=== PATIENT | female | born 1940 | race Caucasian/White ===

== ENCOUNTER 2020-05-08 20:08 | Emergency (ER) | payer MEDICARE, OTHER, SELFPAY ==
[2020-05-08 20:17] VITALS: BP 160/64; PULSE 57; RESP 16; TEMP 36.3; O2SAT 98
--- NOTE | 2020-05-08 20:19 | XR_ITS ---
WS: [id number] XR chest 1V portable [id number] REASON FOR EXAM: syncope FINDINGS: The heart and mediastinum are within normal limits for age. Mild elevation and flattening of the left hemidiaphragm with minimal blunting of the costophrenic ang le, likely chronic. Calcified granulomatous disease in both hilar regions. No active pulmonary parenchymal pleural diseas e noted. Bony thorax intact. XR/XR chest 1V portable [id number] IMPRESSION: No acute chest abnormality
--- NOTE | 2020-05-08 20:19 | ECG_ITS ---
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 Measurements Intervals [place] Rate: 66 P: 27 AK: 159 QRS: 26 QRSD: 90 T: 65 QT: 417 QTc: 440 Interpretive Statements SINUS RHYTHM LOW QRS VOLTAGE IN PRECORDIAL LEADS [QRS DEFLECTION < 1.0 mV IN CHEST LEADS] SEPTAL MYOCARDIAL INFARCTION [40+ ms Q WAVE IN V1/V2], OF INDETERMINATE AGE No previous ECG available for comparison Electronically Signed On 05-09-2020 20:52:31 CDT by Eugenio Salas M.D. [id number]
[2020-05-08 20:27] VITALS: BP 160/64; PULSE 74; RESP 18; O2SAT 98
--- NOTE | 2020-05-08 20:29 | W.ED.SYNCOPE ---
HPI - Syncope General: Chief Complaint: Syncope Stated Complaint: SYNCOPED Time Seen by Provider: 05/08/20 20:11 Source: patient and EMS Mode of arrival: EMS Limitations: altered mental status History of Present Illness: HPI narrative: 79-year-old female who has a history of severe Alzheimer's. Patient is at her baseline currently which is orientated to self. Per EMS she was walking and felt lightheaded sat down the couch and had a syncopal episode for roughly 1 minute. Patient since has been awake. They state when he first arrived she was slightly hypotensive but is now normotensive. She denies any chest pain denies any headache. She has had no vomiting or diarrhea. Family states that she does get dehydrated and does not take much oral intake. Associated symptoms: Deny abdominal pain, fever(s), headache(s) or nausea Review of Systems Const: Denies: fever(s), chills, body aches or change in appetite Eyes: Denies: blurry vision or eye discomfort ENMT: Denies: throat pain or dental pain Card: Reports: syncope Resp: Denies: dyspnea GI: Denies: abdominal pain, nausea, vomiting or diarrhea : Denies: dysuria Musc: Denies: neck pain or back pain Skin/Breast: Denies: rash Neuro: Denies: headache(s) Psych: Denies: depression Reza/Lymph: Denies: easy bruising All/Imm: Denies: urticaria Physical Exam Const: COMMON NORMALS: no acute distress and healthy appearing; negative for patient oriented x3 ORIENTATION/CONSCIOUSNESS: Yes oriented to person; not oriented to place and not oriented to time HENMT: COMMON NORMALS: normocephalic and atraumatic HEAD & SCALP: normocephalic and atraumatic Eye: COMMON NORMALS: Equal, round and reactive pupils present and EOMs intact bilaterally PUPIL: Yes Equal, round and reactive pupils present Neck/C-Spine: COMMON NORMALS: full ROM and supple Chest: COMMONS NORMALS: normal inspection of the chest and normal palpation of entire chest wall Resp: COMMON NORMALS: normal respiratory effort, No retractions, No use of accessory muscles and clear to auscultation bilaterally AUSCULTATION: clear to auscultation bilaterally Cardio: COMMON NORMALS: regular rate, regular rhythm and No murmurs present (Cardio) RATE: regular rate RHYTHM: regular rhythm GI: COMMON NORMALS: Normal to inspection, nondistended, normoactive bowel sounds present, Soft to palpation, non-tender and no masses PALPATION: Yes Soft to palpation Extremity: COMMON NORMALS: normal to inspection and full ROM Neuro: COMMON NORMALS: moves all extremities and no focal motor deficits; negative for patient oriented x3 SENSORIUM/ORIENTATION: Yes oriented to person, No oriented to place and No oriented to time Psych: COMMON NORMALS: mental status grossly normal, Normal thought process present and cooperative THOUGHT PROCESS: Normal thought process present Skin: COMMON NORMALS: no rashes or lesions noted and no wounds GENERAL SKIN EXAM: no rashes or lesions noted Course Vital Signs: Vital signs: Vital Signs Temperature 97.4 F L 05/08/20 20:17 Pulse Rate 55 L 05/08/20 21:22 Respiratory Rate 16 05/08/20 21:22 Blood Pressure 182/61 05/08/20 21:22 Pulse Oximetry 99 05/08/20 21:22 MDM - Syncope MDM Narrative: Medical decision making narrative: Patient presents here with a syncopal event. She is well-appearing here was able to ambulate without any difficulty. She has no signs of a stroke. No signs of acute coronary syndrome or pulmonary bruising. Sounds like a likely vagal event. She is stable for discharge and return if worsening. She is to follow-up with PCP. Lab Data: Labs: Lab Results 05/08/20 05/08/20 05/08/20 Range/Units 20:47 20:48 20:48 WBC 10.1 H (4.0-10.0) 10^3/ uL RBC 4.84 (4.1-5.3) 10^6/u L Hgb 14.5 (11.5-15.3) g/dL Hct 44.9 (37.0-47.0) % MCV 92.8 (81-99) fL MCH 30.0 (28.0-34.0) pg MCHC 32.3 (30.0-36.0) g/dL RDW 13.0 (12.1-15.1) % Plt Count 148 (130-400) 10^3/c mm MPV 12.4 H (7.4-10.4) fL Neut % (Auto) 68.7 % Lymph % (Auto) 18.8 % [place] % (Auto) 9.6 % Eos % (Auto) 1.9 % Baso % (Auto) 0.7 % Neut # (Auto) 6.97 (1.8-7.7) 10^3/u L Lymph # (Auto) 1.9 (0.8-4.8) 10^3/u L [place] # (Auto) 1.0 H (0.2-0.9) 10^3/u L Eos # (Auto) 0.2 (0.0-0.8) 10^3/u L Baso # (Auto) 0.1 (0.0-0.1) 10^3/u L Nucleated RBC % (a uto) 0 % Nucleated RBCs # 0.0 /100WBC Sodium 142 (136-145) mmol/L Potassium 3.5 (3.5-5.1) mmol/L Chloride 101 (98-107) mmol/L Carbon Dioxide 27 (22-29) mmol/L Anion Gap 17.5 (5-19) BUN 18 (8-23) mg/dL Creatinine 1.0 H (0.5-0.9) mg/dL GFR Calculation Not Reportable Glucose 141 H (65-115) mg/dL POC Glucose 124 (70-110) mg/dL Calculated Osmolal ity 298 H (285-295) mOsm/k g Calcium 10.7 H (8.5-10.5) mg/dL Total Bilirubin 0.7 (0.15-1.2) mg/dL AST 27 (0-32) U/L ALT 24 (0-33) U/L Alkaline Phosphata se 99 (35-105) IU/L Total Protein 7.0 (6.6-8.7) g/dL Albumin 4.0 (3.5-5.2) g/dL Globulin 3.0 (1.3-4.6) g/dL Imaging Data^: CXR: Attestation: I personally reviewed and interpreted this imaging study as follows: My impression: no acute abnormality Discharge Plan Discharge Patient Disposition: Home Clinical Impression: Vasovagal syncope Condition: Stable Discharge Orders: Discharge Order (Routine); Ordered 05/08/20 Ordered By: Gus Terry Referrals: Tesha Jefferson FNP [Primary Care Provider] - 1-3 days Discharge Diet: Advance as tolerated Discharge Activity: Resume usual activity Patient Instructions: Syncope (ED) Coding Level of Care Code ED [employer] for [employer] Fwd Exam Comprehensive
--- NOTE | 2020-05-08 20:48 | PC.NURSE ---
blood glucose is 124.
[2020-05-08] MEDS: sodium chloride 0.9% 1,000 ML 999 ML IV (20:50)
[2020-05-08 20:52] LABS: Glucose Point of Care 124 mg/dL (70-110)
[2020-05-08 21:22] VITALS: BP 182/61; PULSE 55; RESP 16; O2SAT 99
[2020-05-08 21:27] LABS: Basophils # 0.1 10^3/uL (0.0-0.1); Basophils % 0.7 %; Eosinophils # 0.2 10^3/uL (0.0-0.8); Eosinophils % 1.9 %; Hematocrit 44.9 % (37.0-47.0); Hemoglobin 14.5 g/dL (11.5-15.3); Lymphocytes # 1.9 10^3/uL (0.8-4.8); Lymphocytes % 18.8 %; Mean Corpuscular HGB Conc 32.3 g/dL (30.0-36.0); Mean Corpuscular Volume 92.8 fL (81-99); Mean Platelet Volume 12.4 fL (7.4-10.4); Monocytes % 9.6 %; Neutrophils # 6.97 10^3/uL (1.8-7.7); Neutrophils % 68.7 %; Nucleated Red Blood Cells % 0 %; Platelet Count 148 10^3/cmm (130-400); Red Blood Count 4.84 10^6/uL (4.1-5.3); White Blood Count 10.1 10^3/uL (4.0-10.0)
[2020-05-08 21:38] LABS: Alanine Aminotransferase 24 U/L (0-33); Alkaline Phosphatase 99 IU/L (35-105); Anion Gap 17.5 (5-19); Aspartate Amino Transferase 27 U/L (0-32); Blood Urea Nitrogen 18 mg/dL (8-23); Calcium 10.7 mg/dL (8.5-10.5); Carbon Dioxide 27 mmol/L (22-29); Chloride 101 mmol/L (98-107); Glucose 141 mg/dL (65-115); Osmolality Calculated 298 mOsm/kg (285-295); Potassium 3.5 mmol/L (3.5-5.1); Sodium 142 mmol/L (136-145); Total Bilirubin 0.7 mg/dL (0.15-1.2)
[2020-05-08 22:35] VITALS: BP 159/81; PULSE 90; RESP 18; O2SAT 98
== END 2020-05-08 22:36 | disposition home or self-care (01) ==
PROVIDERS: Emergency Provider Emergency Medicine; PCP Registered Nurse
DX: R55 Syncope and collapse (principal); G30.9 Alzheimer's disease, unspecified; F02.80 Dementia in other diseases classified elsewhere, unspecified severity, without behavioral disturbance, psychotic disturbance, mood disturbance, and anxiety
CPT/HCPCS: 12345; 36416; 71045; 80053; 82962; 85025; 93005; 96360; 99283; J7030